=== PATIENT | female | born 1975 | race Caucasian/White ===

== ENCOUNTER 2021-06-07 14:29 | Emergency (ER) | payer MEDICAID, SELFPAY ==
[~2021-06-07] VITALS: Ht 152.4 cm; Wt 67.6 kg
--- NOTE | 2021-06-07 14:29 | NUR ---
BROUGHT TO OUTSIDE TRIAGE TENT, TRIAGED AND AWAITING ER REQUESTING TO HAVE A RAPID COVID TEST DONE
[2021-06-07 14:30] VITALS: BP_SYST 151
--- NOTE | 2021-06-07 14:46 | NUR ---
BERTRAM Wall examining patient.
--- NOTE | 2021-06-07 14:48 | NUR ---
COVID SWAB OBTAINED AND SENT
--- NOTE | 2021-06-07 15:05 | NUR ---
Patient given written and verbal discharge instructions and verbalizes understanding. ER MD discussed with patient the results and treatment provided. Patient in stable condition. ID arm band removed. Rx of NONE given. Patient educated on pain management and to follow up with PMD. Pain Scale 0/10. Opportunity for questions provided and answered. Medication side effect fact sheet provided.
== END 2021-06-07 15:05 | disposition home or self-care (01) ==
LOC: SED 14:29
DX: B34.9 Viral infection, unspecified (principal); Z20.822 Contact with and (suspected) exposure to COVID-19
CPT/HCPCS: 36415; 99283